=== PATIENT | female | born 1965 | race Two or more races ===

== ENCOUNTER 2024-12-07 05:58 | Day surgery (SDC) | payer OTHER ==
[2024-12-06 11:22] VITALS: BP 101/66
[~2024-12-07] VITALS: Ht 157.5 cm; Wt 53.5 kg
[~2024-12-07 05:58] MED LIST: COZAAR50 MG PO; EZALLOR SPRINKLE5 MG; GLIMEPIRIDE4 MG; GLYXAMBI 25 MG1 EACH PO
[2024-12-07] MEDS ORDERED: CEFAZOLIN SODIUM 1,000 MG VIAL IJ ONE (11:00)
[2024-12-07] MEDS ORDERED: POVIDONE-IODINE SCRUB 118 ML BOTT TOP ONE (11:00)
[2024-12-07] MEDS ORDERED: GENTAMICIN SULFATE 40 MG/ML VIAL IR ONE (11:00)
[2024-12-07] MEDS ORDERED: CLINDAMYCIN PHOSPHATE 150 MG/ML (900mg) IV ONE (11:00)
[2024-12-07] MEDS ORDERED: POVIDONE-IODINE 118 ML BOTT TOP ONE (11:00)
== END 2024-12-07 15:00 | disposition home or self-care (01) ==
LOC: CIR.AMB 05:58
PROVIDERS: ATTEND Surgery
DX: D05.12 Intraductal carcinoma in situ of left breast (principal); N60.82 Other benign mammary dysplasias of left breast; R59.0 Localized enlarged lymph nodes; Z90.12 Acquired absence of left breast and nipple; N65.1 Disproportion of reconstructed breast
CPT/HCPCS: 19303; 38525; 19357; 15777; L8600

== ENCOUNTER 2025-03-21 08:00 | Outpatient (CLI) | payer OTHER ==
[2025-03-21 13:31] VITALS: BP 113/70
[2025-03-21] MEDS ORDERED: ANASTROZOLE1 MG (14:03)
[2025-03-21 14:46] LABS: BASO % 0.2 % (0.1-1.2); EOS # 0.31 (0.04-0.54); EOS % 2.4 % (0.7-7.0); LYMPH # 4.73 (1.18-3.74); LYMPH % 37.1 % (19.3-53.1); MEAN PLATELET VOLUME 10.50 fl (9.4-12.4); MONO # 0.98 (0.24-0.82); MONO % 7.7 % (4.7-12.5); NEUT # 6.66 (1.56-6.13); NEUT % 52.1 % (34.0-71.1); RED CELL DISTRIBUTION WIDTH 13.2 % (11.6-14.4)
== END 2025-03-21 08:01 | disposition home or self-care (01) ==
LOC: RAD 08:00 → ADM 15:30 → EDSTATUS 03-22 15:30 → CIR.AMB 03-22 15:30
PROVIDERS: ATTEND Plastic Surgery
DX: N65.1 Disproportion of reconstructed breast (principal); Z90.12 Acquired absence of left breast and nipple; Z01.818 Encounter for other preprocedural examination

== ENCOUNTER 2025-06-07 06:00 | Day surgery (SDC) | payer OTHER ==
[2025-06-06 10:47] LABS: URINE APPEARANCE Clear; URINE BILIRRUBIN Negative (NEGATIVE); URINE BLOOD Negative; URINE COLOR Yellow; URINE KETONE Negative (NEGATIVE); URINE LEUKOCYTE Negative; URINE NITRATE Negative; URINE PROTEIN Negative (NEGATIVE); URINE UROBILINOGEN 0.2 E.U./dl
[2025-06-06 10:48] LABS: BASO % 0.2 % (0.1-1.2); EOS # 0.11 (0.04-0.54); EOS % 0.8 % (0.7-7.0); LYMPH # 3.32 (1.18-3.74); LYMPH % 25.5 % (19.3-53.1); MEAN PLATELET VOLUME 10.80 fl (9.4-12.4); MONO # 0.88 (0.24-0.82); MONO % 6.8 % (4.7-12.5); NEUT # 8.63 (1.56-6.13); NEUT % 66.3 % (34.0-71.1); RED CELL DISTRIBUTION WIDTH 12.3 % (11.6-14.4)
[2025-06-06 10:52] LABS: URINE BACTERIA 129.6 uL (0.0-1933); URINE EPITHELIAL CELLS 24.1 uL (0.0-38.8); URINE WBC 6.1 uL (0.0-23.2)
[2025-06-06 11:30] LABS: INR 0.98
[2025-06-06 11:31] LABS: URINE CAST 0.00 uL (0.0-1.40); URINE GLUCOSE 500 MG/DL (NEGATIVE); URINE RBC 0.7 uL (0.0-20.8)
[2025-06-06 11:32] LABS: BUN CREA RATIO 69.0 (7.0-25.0); CREATININE SERUM 0.26 mg/dL (0.55-1.02); GFR 266.77; GLUCOSE FASTING 78.0 mg/dL (65-100); OSMOLALITY SERUM 286.0 MOSM/KG (275-295)
[2025-06-06 12:23] VITALS: BP 117/72
[~2025-06-07] VITALS: Ht 157.5 cm; Wt 54.4 kg
[~2025-06-07 06:00] MED LIST changes: +ANASTROZOLE1 MG
[2025-06-07] MEDS ORDERED: ONDANSETRON HCL 2 MG/ML VIAL IV PRN (10:45)
[2025-06-07] MEDS ORDERED: CEFAZOLIN SODIUM 1,000 MG VIAL IJ ONE (11:45)
[2025-06-07] MEDS ORDERED: POVIDONE-IODINE SCRUB 118 ML BOTT TOP ONE (11:45)
[2025-06-07] MEDS ORDERED: TRANEXAMIC ACID 100MG/1ML (1000MG) AMPUL IV ONE (11:45)
[2025-06-07] MEDS ORDERED: GENTAMICIN SULFATE 40 MG/ML VIAL IR ONE (11:45)
[2025-06-07] MEDS ORDERED: EPINEPHRINE HCL/PF 1 MG/ML AMPUL IR ONE (11:45)
[2025-06-07] MEDS ORDERED: CLINDAMYCIN PHOSPHATE 150 MG/ML (900mg) IV ONE (11:45)
[2025-06-07] MEDS ORDERED: SUGAMMADEX SODIUM 200 MG/2 ML VIAL IV ONE (11:47)
[2025-06-07] MEDS ORDERED: POVIDONE-IODINE 118 ML BOTT TOP ONE (12:00)
== END 2025-06-07 15:10 | disposition home or self-care (01) ==
LOC: CIR.AMB 06:00
PROVIDERS: ATTEND Plastic Surgery
DX: N65.1 Disproportion of reconstructed breast (principal); D05.12 Intraductal carcinoma in situ of left breast; Z90.12 Acquired absence of left breast and nipple